=== PATIENT | male | born 1945 | race Two or more races ===

== ENCOUNTER 2023-05-07 06:30 | Day surgery (SDC) | payer OTHER ==
[2023-04-29 12:39] LABS: HEMATOCRIT 44.6 % (39.0-48.0); HEMOGLOBIN 14.9 g/dL (13-16.00); MEAN CELL VOLUME 95.1 fL (80.0-100.00); MEAN CORPUSCULAR HEMOGLOBIN 31.8 pg (27.00-32.0); MEAN CORPUSCULAR HGB CONC 33.4 g/dl (32.0-36.0); PLATELET COUNT 165 K/uL (150-450); RED BLOOD COUNT 4.68 M/uL (4.00-6.00)
[2023-04-29 12:40] LABS: PH,URINE 6.5 (5.0-8.0); URINE APPEARANCE Clear; URINE BILIRRUBIN Negative (NEGATIVE); URINE BLOOD Negative; URINE COLOR Yellow; URINE GLUCOSE Negative (NEGATIVE); URINE LEUKOCYTE Negative; URINE NITRATE Negative; URINE PROTEIN Negative (NEGATIVE); URINE UROBILINOGEN 0.2 E.U./dl
[2023-04-29 12:42] LABS: URINE RBC 8.7 uL (0.0-20.8)
[2023-04-29 13:00] LABS: INR 1.14; PARTIAL THROMBOPLASTIN TIME 30.7 SECONDS (22.0-34.0); PROTHROMBIN TIME 11.9 SECONDS (9.0-11.5)
[2023-04-29 13:06] LABS: ALBUMIN 4.1 gm/dL (3.4-5.0); BILIRUBIN TOTAL 0.93 mg/dL (0.3-1.2); CALCIUM 9.3 mg/dL (8.5-10.1); CREATININE SERUM 0.86 mg/dL (0.70-1.30); GFR 86.46; GLOBULINA 3.4 G/DL (2.4-3.5); POTASSIUM 4.22 mEq/L (3.5-5.1); TOTAL PROTEIN 7.5 gm/dL (6.4-8.2)
[2023-04-29 13:45] LABS: URINE BACTERIA 2.5 uL (0.0-1933); URINE EPITHELIAL CELLS 0.1 uL (0.0-38.8); URINE WBC 0.2 uL (0.0-23.2)
[~2023-05-07] VITALS: Ht 170.2 cm; Wt 72.6 kg
[~2023-05-07 06:30] MED LIST: ELIQUIS2.5 MG PO; SIMVASTATIN5 MG PO; TAMS0.4C PO
[2023-05-07] MEDS ORDERED: OXYC1TAB9 PO (10:41)
== END 2023-05-07 14:50 | disposition home or self-care (01) ==
LOC: CIR.AMB 06:30
PROVIDERS: ATTEND Surgery
DX: K62.89 Other specified diseases of anus and rectum (principal); K62.1 Rectal polyp; Z20.822 Contact with and (suspected) exposure to COVID-19; I10 Essential (primary) hypertension; Z88.0 Allergy status to penicillin